=== PATIENT | female | born 1995 | race Caucasian/White ===

== ENCOUNTER 2016-12-15 07:29 | Emergency (ER) | payer BC ==
[~2016-12-15] VITALS: Ht 157.5 cm; Wt 53.1 kg
--- NOTE | 2016-12-15 08:00 | NUR ---
PT CAME IN FOR VAGINAL LAC WITH "BUMPS" SURROUNDING IT. PER PT SHE NOTICED IT RIGHT AFTER SEXUAL INTERCOURSE A FEW DAYS AGO. 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 DENIES FEVER. DENIES BLEEDING. SAFETY AND COMFORT MEASURES PROVIDED. WILL MONITOR.
[2016-12-15 09:00] VITALS: BP 116/80
== END 2016-12-15 09:01 | disposition home or self-care (01) ==
LOC: ER 07:31
DX: B00.9 Herpesviral infection, unspecified (principal); Z88.0 Allergy status to penicillin; Z88.1 Allergy status to other antibiotic agents
CPT/HCPCS: 99283; A4606; Z7610

== ENCOUNTER 2017-12-09 17:39 | Emergency (ER) | payer BC ==
[~2017-12-09] VITALS: Ht 157.5 cm; Wt 54.4 kg
--- NOTE | 2017-12-09 17:40 | NUR ---
PT TO ED ROOM 16. ON & OFF LUQ PAIN AGGRAVATED BY FOOD INTAKE X 1 WEEK, NORMAL BM THIS AM. A/A/O. AMBULATORY WITH STEADY GAIT. SIDE RAILS UP. HOB ELEVATED. AWAITING EVALUATION BY ER PROVIDER.
--- NOTE | 2017-12-09 17:40 | NUR ---
PT TO ED ROOM 16. ON & OFF LUQ PAIN AGGRAVATED BY FOOD INTAKE X 1 WEEK, NORMAL BM THIS AM. A/A/O. AMBULATORY. SEEN BY ED PROVIDER. SIDE RAILS UP. HOB ELEVATED. CONNECTED TO MONITOR.
--- NOTE | 2017-12-09 19:04 | NUR ---
REPORT RECEIVED FROM HEATHER RACHEL FOR [facility].
[2017-12-09 19:12] VITALS: BP 102/63
--- NOTE | 2017-12-09 19:23 | NUR ---
URINE SPECIMEN SENT TO THE LAB.
--- NOTE | 2017-12-09 19:33 | NUR ---
LAB AT BEDSIDE FOR DRAW.
[2017-12-09 19:39] LABS: BASOPHILS % (AUTO) 0.4 % (0.0-2.0); EOSINOPHILS % (AUTO) 1.5 % (0.0-6.0); HEMATOCRIT 38 % (33-45); HEMOGLOBIN 13.3 g/dL (11.5-14.8); LYMPHOCYTES # (AUTO) 1.2 /CMM (0.8-4.8); LYMPHOCYTES % (AUTO) 10.7 % (20.0-44.0); MEAN CORPUSCULAR HGB CONC 36 g/dl (31.0-36.0); MEAN CORPUSCULAR VOLUME 94 fL (82-100); MONOCYTES # (AUTO) 0.5 /CMM (0.1-1.30); MONOCYTES % (AUTO) 4.8 % (2.0-12.0); NEUTROPHILS # (AUTO) 8.9 /CMM (1.8-8.9); NEUTROPHILS % (AUTO) 82.6 % (43.0-81.0); PLATELET COUNT (AUTO) 168 /CMM (150-450); RDW COEFFICIENT OF VARIATION 11.7 (11.5-15.0); RED BLOOD CELL COUNT(AUTO) 3.98 MIL/uL (4.0-5.2); WHITE BLOOD COUNT (AUTO) 10.8 K/uL (4.3-11.0)
[2017-12-09 19:49] LABS: APPEARANCE,URINE Slightly Cloudy (CLEAR); BILIRUBIN,URINE SMALL (NEGATIVE); BLOOD, URINE Negative Ery/uL (NEGATIVE); COLOR,URINE Yellow (YELLOW); KETONES,URINE 15 (NEGATIVE); LEUKOCYTE ESTERASE ,URINE Negative (NEGATIVE); NITRITE, URINE Negative (NEGATIVE); PH,URINE 6.5 (5.0-8.0); PROTEIN,URINE 30 mg/dl (NEGATIVE); UGLUCOSE Negative (NEGATIVE); UROBILINOGEN,URINE 0.2 EU/dL (0.2)
[2017-12-09 19:49] LABS: CALCIUM, SERUM 9.2 mg/dL (8.5-10.1); CREATININE 0.8 mg/dL (0.6-1.3); POTASSIUM 3.9 mmol/L (3.5-5.1)
[2017-12-09 19:52] LABS: BACTERIA,URINE Few /HPF (None Seen); SQUAMOUS EPITHELIAL CELL,UR Few /HPF (None Seen)
[2017-12-09 19:54] LABS: RBC,URINE 0-2 /HPF (0-2); WBC,URINE 0-2 /HPF (0-3)
[2017-12-09 19:54] LABS: ALBUMIN 3.6 g/dL (3.4-5.0); BILIRUBIN,DIRECT 0.1 mg/dL (0.0-0.2); BILIRUBIN,TOTAL 0.4 mg/dL (0.2-1.0); TOTAL PROTEIN, SERUM 7.3 g/dL (6.4-8.2)
--- NOTE | 2017-12-09 20:42 | NUR ---
Patient discharged to home in stable condition. Written and verbal after care instructions given. Patient verbalizes understanding of instruction. ambulatory with a steady gait
[2017-12-09 20:54] LABS: EOSINOPHILS % (MANUAL) 2 % (0-4); LYMPHOCYTES % (MANUAL) 14 % (16-48); MONOCYTES % (MANUAL) 3 % (0-11.0); NEUTROPHILS % (MANUAL) 81 (42-76)
== END 2017-12-09 20:45 | disposition home or self-care (01) ==
LOC: ER 17:40
DX: R10.13 Epigastric pain (principal); Z88.0 Allergy status to penicillin; Z88.1 Allergy status to other antibiotic agents
CPT/HCPCS: 36415; 80048-TC; 80076-TC; 81000-TC; 84703-TC; 85025-TC; A4606; Z7610